=== PATIENT | female | born 1940 | race Caucasian/White ===

== ENCOUNTER 2024-12-17 09:11 | Inpatient (IN) ==
[2024-12-17] MEDS: 0.9 % SODIUM CHLORIDE 1,000 ML IV ONE (10:37)
[2024-12-17 10:56] LABS: Basophils # (Auto) 0.04 K/mcL (0.00-0.30); Basophils % (Auto) 0.3 % (0.0-2.0); Eosinophils # (Auto) 0.15 K/mcL (0.00-0.70); Eosinophils % (Auto) 1.3 % (0.0-7.0); Hematocrit 51.1 % (34.1-44.9); Hemoglobin 16.4 g/dL (11.2-15.7); Lymphocytes # (Auto) 3.13 K/mcL (1.50-4.80); Lymphocytes % (Auto) 26.3 % (15.5-49.0); Mean Corpuscular HGB Conc 32.1 g/dL (31.0-36.0); Monocytes # (Auto) 0.73 K/mcL (0.10-0.90); Monocytes % (Auto) 6.1 % (1.0-12.0); Neutrophils % (Auto) 65.6 % (38.0-78.0); Platelet Count 279 K/mcL (140-440); RBC 5.40 M/mcL (3.59-5.38); WBC 11.9 K/mcL (4.5-11.0)
[2024-12-17 11:23] LABS: ALT/SGPT 18 U/L (<40); AST/SGOT 33 U/L (<32); Albumin 4.2 gm/dL (3.2-5.2); Albumin/Globulin Ratio 1.4 (1.0-2.3); Alkaline Phosphatase 59 U/L (39-117); Anion Gap 17.0 (8.0-16.0); Bilirubin,Total 0.6 mg/dL (0.1-1.0); Blood Urea Nitrogen 23 mg/dL (8-23); Calcium 9.7 mg/dL (8.6-10.4); Carbon Dioxide 23 mmol/L (22-30); Chloride 97 mmol/L (96-108); Globulin 3.0 gm/dL (2.2-3.7); Glucose 126 mg/dL (70-105); Potassium 3.9 mmol/L (3.3-5.1); Sodium 137 mmol/L (133-145)
[2024-12-17 11:57] LABS: Thyroid Stimulating Hormone 2.4 uIU/mL (0.27-5.01)
[2024-12-17 14:39] LABS: Bacteria,Urine MOD /hpf (0); Bilirubin,Urine Negative (Negative); Color,Urine YELLOW; Glucose,Urine (UA) Negative (Negative); Ketones,Urine 20 mg/dL (Negative); Leukocyte Esterase,Urine Negative /uL (Negative); Mucus,Urine FEW /hpf; PH,Urine 6.0 (5.0-9.0); Protein,Urine 30 mg/dL (Negative); Specific Gravity,Urine 1.008 (1.000-1.035); Urobilinogen,Urine Negative
[2024-12-17] MEDS: cefTRIAXone 1 GM VIAL IV ONE (14:54)
[2024-12-17] MEDS ORDERED: IPRATROPIUM/ALBUTEROL 3 ML AMPUL.NEB NEB PRN (17:53)
[2024-12-17] MEDS ORDERED: DEXTROSE 50% 50 ML VIAL IV PRN (17:53)
[2024-12-17] MEDS ORDERED: ACETAMINOPHEN 325 MG TABLET PO PRN (17:53)
[2024-12-17] MEDS ORDERED: ONDANSETRON 4 MG/2 ML VIAL IV PRN (17:53)
[2024-12-17] MEDS ORDERED: DEXTROSE 31 GM ORAL.SUSP PO PRN (17:53)
[2024-12-17] MEDS: 0.9 % SODIUM CHLORIDE 1,000 ML IV SCH (18:36)
[2024-12-17] MEDS: cefTRIAXone 1 GM VIAL IV SCH (19:20)
[2024-12-17] MEDS: INSULIN LISPRO 1 UNIT/0.01 ML UNIT SQ SCH (19:20)
[2024-12-17 20:13] LABS: Thyroid Stimulating Hormone 1.23 uIU/mL (0.27-5.01)
[2024-12-17] MEDS: DOCUSATE SODIUM 100 MG CAPSULE PO SCH (21:06)
[2024-12-17] MEDS: SENNOSIDES 1 TABLET PO SCH (21:06)
[2024-12-17] MEDS: 0.9 % SODIUM CHLORIDE 10 ML SYRINGE IV SCH (21:07)
[2024-12-18 06:17] LABS: Basophils # (Auto) 0.05 K/mcL (0.00-0.30); Basophils % (Auto) 0.4 % (0.0-2.0); Eosinophils # (Auto) 0.05 K/mcL (0.00-0.70); Eosinophils % (Auto) 0.4 % (0.0-7.0); Hematocrit 44.3 % (34.1-44.9); Hemoglobin 14.9 g/dL (11.2-15.7); Lymphocytes # (Auto) 3.29 K/mcL (1.50-4.80); Lymphocytes % (Auto) 28.1 % (15.5-49.0); Mean Corpuscular HGB Conc 33.6 g/dL (31.0-36.0); Monocytes # (Auto) 0.88 K/mcL (0.10-0.90); Monocytes % (Auto) 7.5 % (1.0-12.0); Neutrophils % (Auto) 63.3 % (38.0-78.0); Platelet Count 233 K/mcL (140-440); RBC 4.82 M/mcL (3.59-5.38); WBC 11.7 K/mcL (4.5-11.0)
[2024-12-18 06:31] LABS: ALT/SGPT 16 U/L (<40); AST/SGOT 30 U/L (<32); Albumin 3.5 gm/dL (3.2-5.2); Albumin/Globulin Ratio 1.3 (1.0-2.3); Alkaline Phosphatase 50 U/L (39-117); Anion Gap 12.0 (8.0-16.0); Bilirubin,Total 0.6 mg/dL (0.1-1.0); Blood Urea Nitrogen 14 mg/dL (8-23); Calcium 9.0 mg/dL (8.6-10.4); Carbon Dioxide 25 mmol/L (22-30); Chloride 99 mmol/L (96-108); Globulin 2.6 gm/dL (2.2-3.7); Glucose 99 mg/dL (70-105); Potassium 3.9 mmol/L (3.3-5.1); Sodium 136 mmol/L (133-145)
[2024-12-18 06:38] LABS: Estimated Average Glucose(eAG) 117 mg/dL; Hemoglobin A1C 5.7 % Hgb (4.0-6.0)
[2024-12-18] MEDS: cefTRIAXone 2 GM in DEXTROSE 5% IN WATER 50 ML IV SCH (08:37)
[2024-12-18] MEDS: ENOXAPARIN 40 MG/0.4 ML SYRINGE SQ SCH (08:40)
[2024-12-18] MEDS: ASPIRIN 81 MG TAB.CHEW PO SCH (20:52)
[2024-12-18] MEDS: CALCIUM (OYSTER SHELL) 500 MG TABLET PO SCH (20:52)
[2024-12-18] MEDS: PRAVASTATIN 40 MG TABLET PO SCH (20:54)
[2024-12-18] MEDS: PRAVASTATIN 20 MG TABLET PO SCH (20:54)
[2024-12-19 06:31] LABS: Basophils # (Auto) 0.04 K/mcL (0.00-0.30); Basophils % (Auto) 0.5 % (0.0-2.0); Eosinophils # (Auto) 0.19 K/mcL (0.00-0.70); Eosinophils % (Auto) 2.3 % (0.0-7.0); Hematocrit 45.2 % (34.1-44.9); Hemoglobin 14.9 g/dL (11.2-15.7); Lymphocytes # (Auto) 2.27 K/mcL (1.50-4.80); Lymphocytes % (Auto) 27.9 % (15.5-49.0); Mean Corpuscular HGB Conc 33.0 g/dL (31.0-36.0); Monocytes # (Auto) 0.60 K/mcL (0.10-0.90); Monocytes % (Auto) 7.4 % (1.0-12.0); Neutrophils % (Auto) 61.3 % (38.0-78.0); Platelet Count 230 K/mcL (140-440); RBC 4.82 M/mcL (3.59-5.38); WBC 8.1 K/mcL (4.5-11.0)
[2024-12-19 06:46] LABS: ALT/SGPT 16 U/L (<40); AST/SGOT 30 U/L (<32); Albumin 3.5 gm/dL (3.2-5.2); Albumin/Globulin Ratio 1.3 (1.0-2.3); Alkaline Phosphatase 50 U/L (39-117); Anion Gap 12.0 (8.0-16.0); Bilirubin,Total 0.5 mg/dL (0.1-1.0); Blood Urea Nitrogen 11 mg/dL (8-23); Calcium 8.8 mg/dL (8.6-10.4); Carbon Dioxide 24 mmol/L (22-30); Chloride 106 mmol/L (96-108); Globulin 2.6 gm/dL (2.2-3.7); Glucose 97 mg/dL (70-105); Potassium 3.2 mmol/L (3.3-5.1); Sodium 142 mmol/L (133-145)
[2024-12-19] MEDS: ASCORBIC ACID 500 MG TABLET PO SCH (08:21)
[2024-12-19] MEDS: CILOSTAZOL 100 MG TABLET PO SCH (08:21)
[2024-12-19] MEDS: CYANOCOBALAMIN (VITAMIN B-12) 500 MCG TABLET PO SCH (08:22)
[2024-12-19] MEDS: LOSARTAN 25 MG TABLET PO SCH (08:22)
[2024-12-19] MEDS: CELECOXIB 200 MG CAPSULE PO SCH (08:22)
[2024-12-19] MEDS: MULTIVIT,THER IRON,CA,FA & MIN 1 TABLET PO SCH (08:22)
[2024-12-19] MEDS: SERTRALINE 50 MG TABLET PO SCH (08:22)
[2024-12-19] MEDS ORDERED: CINNAMON BARK 500 MG PO SCH (09:00)
[2024-12-19] MEDS: POTASSIUM CHLORIDE 20 MEQ TABLET PO SCH (11:14)
[2024-12-20 06:36] LABS: Basophils # (Auto) 0.07 K/mcL (0.00-0.30); Basophils % (Auto) 0.9 % (0.0-2.0); Eosinophils # (Auto) 0.38 K/mcL (0.00-0.70); Eosinophils % (Auto) 5.1 % (0.0-7.0); Hematocrit 44.9 % (34.1-44.9); Hemoglobin 14.4 g/dL (11.2-15.7); Lymphocytes # (Auto) 2.56 K/mcL (1.50-4.80); Lymphocytes % (Auto) 34.3 % (15.5-49.0); Mean Corpuscular HGB Conc 32.1 g/dL (31.0-36.0); Monocytes # (Auto) 0.63 K/mcL (0.10-0.90); Monocytes % (Auto) 8.4 % (1.0-12.0); Neutrophils % (Auto) 51.2 % (38.0-78.0); Platelet Count 218 K/mcL (140-440); RBC 4.69 M/mcL (3.59-5.38); WBC 7.5 K/mcL (4.5-11.0)
[2024-12-20 06:50] LABS: ALT/SGPT 17 U/L (<40); AST/SGOT 32 U/L (<32); Albumin 3.4 gm/dL (3.2-5.2); Albumin/Globulin Ratio 1.4 (1.0-2.3); Alkaline Phosphatase 48 U/L (39-117); Anion Gap 11.0 (8.0-16.0); Bilirubin,Total 0.4 mg/dL (0.1-1.0); Blood Urea Nitrogen 13 mg/dL (8-23); Calcium 9.3 mg/dL (8.6-10.4); Carbon Dioxide 24 mmol/L (22-30); Chloride 105 mmol/L (96-108); Globulin 2.5 gm/dL (2.2-3.7); Glucose 98 mg/dL (70-105); Potassium 3.6 mmol/L (3.3-5.1); Sodium 140 mmol/L (133-145)
== END 2024-12-20 16:56 | DRG 871 ==
LOC: ED 09:11 → MEDSUR 17:30
PROVIDERS: ADMIT Internal Medicine; ATTEND Internal Medicine